=== PATIENT | male | born 1960 ===

== ENCOUNTER 2024-10-16 14:43 | Emergency (ER) | payer OTHER ==
[2024-10-16] MEDS: Lidocaine 1% 5 ML VIAL INJECT ONE (15:36)
== END 2024-10-16 16:02 | disposition home or self-care (01) ==
LOC: DL.ED 14:43
DX: S63.286A Dislocation of proximal interphalangeal joint of right little finger, initial encounter (principal); I10 Essential (primary) hypertension; Z88.0 Allergy status to penicillin; Z79.84 Long term (current) use of oral hypoglycemic drugs; Z79.899 Other long term (current) drug therapy; W22.8XXA Striking against or struck by other objects, initial encounter
CPT/HCPCS: 28660; 73140-F9; 99282; 99283-25; J3490